=== PATIENT | female | born 1945 | race Caucasian/White ===

== ENCOUNTER 2021-06-29 15:10 | Emergency (ER) | payer MEDICARE, OTHER ==
[2021-06-29 15:26] VITALS: BP 117/81; PULSE 58; RESP 18; TEMP 98
--- NOTE | 2021-06-29 17:05 | CT ---
EXAMINATION TYPE: CT brain shey iglesias DATE OF EXAM: 06/29/2021 COMPARISON: None HISTORY: Fall on eliquis. Right supraorbital bruising. CT DLP: 1076.1 mGycm Automated exposure control for dose reduction was used. There is cerebral cortical atrophy. There is evidence of old right anterior internal capsule lacunar infarct. There is some enlargement of the right lateral ventricle. There is no mass effect nor midlin e shift. There is no sign of intracranial hemorrhage. The calvarium is intact. There is some straightening of the mid cervical spine. There is disc space narrowing from C3 to C7 wi th spurring of the endplates. There is multilevel mild facet arthropathy. There is calcification of t he posterior longitudinal ligament at C3-C4 C5-C6. There is mild narrowing of the spinal canal. There is a bony spinal stenosis at C4-5. Canal measures approximately approximately 7 mm. Prevertebral sof t tissues are intact. IMPRESSION: Cerebral atrophy and chronic small vessel ischemia. 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 No acute intr acranial abnormality. Spondylotic changes in the cervical spine. No fracture.
--- NOTE | 2021-06-29 17:20 | CT ---
EXAMINATION TYPE: CT facial bones wo con DATE OF EXAM: 06/29/2021 COMPARISON: None HISTORY: Fall on eliquis. Right supraorbital bruising. CT DLP: mGycm Automated exposure control for dose reduction was used. Images obtained from the bottom of the mandible to the top of the frontal sinuses without contrast. The mandibular ring is intact. Temporomandibular joints are intact. Zygomatic arches appear normal. T here is normal aeration of the mastoid sinuses. Skull base is intact. There is no evidence of retro-o rbital mass. The orbital margins are intact. There is no evidence of orbital blowout fracture. There is fairly normal aeration of the paranasal sinuses. I see no bony destructive process. There is mild right frontal scalp soft tissue swelling. The maxilla is intact. The nasal bones appear intact. IMPRESSION: Right frontal scalp soft tissue swelling. No fracture seen.
--- NOTE | 2021-06-29 17:27 | ED ---
Fall HPI - General Chief Complaint: Fall Stated Complaint: Fall Source: EMS Mode of arrival: EMS - History of Present Illness Initial Comments: Patient is a 75-year-old female with past medical history of CVA, Parkinson's who presents emergency department with reported head injury. The patient apparently fell at her facility, [facility], 48 hours ago. Patient fell and hit her head. She is on Eliquis for history of strokes. The physician at the facility evaluated the patient today and recommended that due to her anticoagulation that she had a CT of her head performed. The patient has no complaints at this time. She is A+O 2 which is reported by EMS that this is her baseline. Patient answers all questions appropriately for me. She denies any pain. No other alleviating, precipitating or modifying factors - Related Data Home Medications Medication Instructions Recorded Confirmed Apixaban [Eliquis] 5 mg PO BID 06/29/21 06/29/21 Enalapril [Vasotec] 20 mg PO BID 06/29/21 06/29/21 Metoprolol Tartrate 25 mg PO BID 06/29/21 06/29/21 amLODIPine [Norvasc] 10 mg PO DAILY 06/29/21 06/29/21 Allergies Allergy/AdvReac Type Severity Reaction Status Date / Time No Known Allergies Allergy Verified 06/29/21 16:41 Review of Systems ROS Statement: Those systems with pertinent positive or pertinent negative responses have been documented in the HPI. ROS Other: All systems not noted in ROS Statement are negative. Past Medical History Past Medical History: CVA/TIA, Renal Disease Additional Past Medical History / Comment(s): Parkinsons, weakness History of Any Multi-Drug Resistant Organisms: None Reported Past Surgical History: Unable to Obtain Past Psychological History: No Psychological Hx Reported Smoking Status: Never smoker Past Alcohol Use History: None Reported Past Drug Use History: None Reported General Exam Limitations: no limitations Course Vital Signs 06/29/21 15:12 Temperature 98 F Pulse Rate 58 L Respiratory 18 Rate Blood Pressure 117/81 O2 Sat by Pulse 94 L Oximetry Medical Decision Making - Medical Decision Making Upon arrival patient is placed into room 4. A thorough history and physical exam was performed. Patient does have some bruising to the right side of her face. Patient sent over for a CT of her brain, cervical spine and face. CT demonstrates 3 branch been chronic small vessel ischemia. 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 No acute intercranial abnormality. No fractures of the cervical spine. No facial fractures. Right frontal scalp soft tissue. These results were discussed the patient. She will be sent back to [facility] at this time. She was taken back via EMS in stable condition - EKG Data EKG Comments: EKG demonstrates a sinus bradycardia with a ventricular rate of 53. IA interval 172. QRS 88. QTC of 471. No acute ST segment elevations or depressions con cerning for ischemic changes. Disposition Clinical Impression: Fall, Head injury, Anticoagulant long-term use Disposition: HOME SELF-CARE Condition: Stable Instructions (If sedation given, give patient instructions): Fall Prevention for Older Adults (ED) Is patient prescribed a controlled substance at d/c from ED?: No Referrals: Zoltan Padilla DO [Primary Care Provider] - 1-2 days Time of Disposition: 17:28
== END 2021-06-29 18:47 | disposition home or self-care (01) ==
LOC: EC 15:10
DX: S09.90XA Unspecified injury of head, initial encounter (principal); S00.83XA Contusion of other part of head, initial encounter; G20 Parkinson's disease; Z86.73 Personal history of transient ischemic attack (TIA), and cerebral infarction without residual deficits; Z79.01 Long term (current) use of anticoagulants; W01.10XA Fall on same level from slipping, tripping and stumbling with subsequent striking against unspecified object, initial encounter; Y92.239 Unspecified place in hospital as the place of occurrence of the external cause
CPT/HCPCS: 70450; 70486; 72125; 93005; 99284

== ENCOUNTER 2021-07-03 00:34 | Emergency (ER) | payer MEDICARE, OTHER ==
[2021-07-03 00:42] VITALS: RESP 20; TEMP 98
[2021-07-03] MEDS ORDERED: ACETAMINOPHEN TAB 325 MG TAB PO STA (01:13)
--- NOTE | 2021-07-03 01:39 | CT ---
EXAMINATION TYPE: CT brain shey wo con DATE OF EXAM: 07/03/2021 COMPARISON: 06/29/2021 HISTORY: fall Headache. Neck pain. CT DLP: 1439.3 mGycm Automated exposure control for dose reduction was used. There is cerebral cortical atrophy. There is no mass effect nor midline shift. There is no sign of in tracranial hemorrhage. There is some hypodensity anterior right internal capsule consistent with old lacunar infarcts. There is some asymmetric enlargement of the frontal horn right lateral ventricle. C alvarium is intact. The skull base is intact. There is normal aeration of the mastoid sinuses. The cervical vertebra show mild straightening. At C4-5 and C5-6 there is posterior longitudinal ligam ent calcification. There is no compression fracture. There is multilevel cervical disc space narrowin g. IMPRESSION: Cerebral atrophy. Old lacunar infarcts in the right internal capsule. No change compared to old exam. Spondylotic changes in the cervical spine. No fracture. No change compared to old exam.
[2021-07-03 01:40] LABS: Amorphous Sediment,Urine Rare /hpf; Appearance,Urine Cloudy (Clear); Bacteria,Urine Occasional /hpf; Bilirubin,Urine Negative (Negative); Blood,Urine Negative (Negative); Color,Urine Light Yellow; Glucose,Urine (UA) Negative (Negative); Ketones,Urine Negative (Negative); Leukocyte Esterase,Urine Negative (Negative); Nitrite,Urine Negative (Negative); PH, Urine 6.5 (5.0-8.0); Protein,Urine Negative (Negative); RBC,Urine 1 /hpf (0-5); Specific Gravity,Urine 1.006 (1.001-1.035); Squamous Epithelial Cell,Urine 2 /hpf (0-4); WBC,Urine 3 /hpf (0-5)
[2021-07-03 01:41] LABS: INR 1.1 (<1.2); Partial Thromboplastin Time 24.6 sec (22.0-30.0); Prothrombin Time 11.2 sec (9.0-12.0)
[2021-07-03 01:42] LABS: Albumin 4.1 g/dL (3.5-5.0); Calcium 9.2 mg/dL (8.4-10.2); Potassium 4.2 mmol/L (3.5-5.1); Total Bilirubin 0.9 mg/dL (0.2-1.3); Total Protein 7.2 g/dL (6.3-8.2)
[2021-07-03 01:49] LABS: Basophils % (A) 0 %; Eosinophils # (A) 0.1 k/uL (0-0.7); Eosinophils % (A) 1 %; HCT 36.9 % (34.0-46.0); HGB 12.5 gm/dL (11.4-16.0); Lymphocytes # (A) 1.7 k/uL (1.0-4.8); Lymphocytes % (A) 25 %; MCH 30.8 pg (25.0-35.0); MCHC 33.7 g/dL (31.0-37.0); MCV 91.3 fL (80.0-100.0); Mean Platelet Volume 8.1; Monocytes # (A) 0.3 k/uL (0-1.0); Monocytes % (A) 5 %; Neutrophils # (A) 4.6 k/uL (1.3-7.7); Neutrophils % (A) 68 %; Platelet Count 175 k/uL (150-450); RBC 4.04 m/uL (3.80-5.40); WBC 6.8 k/uL (3.8-10.6)
--- NOTE | 2021-07-03 02:32 | ED ---
General Adult HPI - General Chief complaint: Fall Stated complaint: Fall Time Seen by Provider: 07/03/21 01:03 Source: EMS Mode of arrival: EMS - History of Present Illness Initial comments: 75 year-old female patient presents to the emergency department for evaluation after a fall. Patient states this is her second fall this week. She is unsure how she is falling, states she just ends up on the floor. She is unsure if she hit her head. She states she does currently have a mild headache. Denies any blurred or double vision. She does not feel dizzy. Denies any chest pain or s hortness of breath. Denies any abdominal pain. States she is having pain to her bilateral knees. Denies numbness or tingling to the extremities. Denies dizziness or weakness. Patient denies any recent rash, cough, nausea, vomiting, diarrhea, constipation, back pain, numbness, tingling, dizziness, weakness, hematuria, dysuria, urinary urgency, urinary frequency, headache, visual changes, or any other complaints. - Related Data Home Medications Medication Instructions Recorded Confirmed Apixaban [Eliquis] 5 mg PO BID 06/29/21 06/29/21 Enalapril [Vasotec] 20 mg PO BID 06/29/21 06/29/21 Metoprolol Tartrate 25 mg PO BID 06/29/21 06/29/21 amLODIPine [Norvasc] 10 mg PO DAILY 06/29/21 06/29/21 Allergies Allergy/AdvReac Type Severity Reaction Status Date / Time No Known Allergies Allergy Verified 06/29/21 16:41 Review of Systems ROS Statement: Those systems with pertinent positive or pertinent negative responses have been documented in the HPI. ROS Other: All systems not noted in ROS Statement are negative. Past Medical History Past Medical History: CVA/TIA, Renal Disease Additional Past Medical History / Comment(s): Parkinsons, weakness History of Any Multi-Drug Resistant Organisms: None Reported Past Surgical History: Unable to Obtain Past Psychological History: No Psychological Hx Reported Smoking Status: Never smoker Past Alcohol Use History: None Reported Past Drug Use History: None Reported General Exam General appearance: alert, in no apparent distress, other (Physical well- developed, well-nourished elderly female patient in no acute distress. Vital signs upon presentation are temperature 98.0F, pulse 79, respirations 20, blood pressure 173/89, pulse ox 100% on room air.) Head exam: Present: atraumatic, normocephalic, normal inspection Eye exam: Present: PERRL, EOMI, other (There is ecchymosis noted over the right supraorbital and right lateral orbital region extending up onto the forehead. No hyphema or evidence for globe injury. No lid swelling.). Absent: scleral icterus, conjunctival injection, periorbital swelling, periorbital tenderness ENT exam: Present: normal exam, normal oropharynx, mucous membranes moist, other (2cm laceration noted to the left cheek. 1cm laceration to the left side of the nose. No nasal bone tenderness. No epistaxis. No septal hematoma.) Neck exam: Present: normal inspection, full ROM, other (Nontender, no step-off, no deformity to firm midline palpation of the posterior cervical spine. Full range of motion without pain or limitation.). Absent: tenderness, meningismus, lymphadenopathy Respiratory exam: Present: normal lung sounds bilaterally. Absent: respiratory distress, wheezes, rales, rhonchi, stridor Cardiovascular Exam: Present: normal rhythm, bradycardia, normal heart sounds. Absent: systolic murmur, diastolic murmur, rubs, gallop, clicks GI/Abdominal exam: Present: soft, normal bowel sounds. Absent: distended, tenderness, guarding, rebound, rigid Extremities exam: Present: full ROM, normal capillary refill, other (There is abrasion noted over the left anterior knee. No bony tenderness. Patient e xhibits full active range of motion. Skin is otherwise pink, warm, dry. Pedal and posttibial pulses are 2+.). Absent: tenderness, pedal edema, joint swelling, calf tenderness Neurological exam: Present: alert, oriented X3, CN II-XII intact Psychiatric exam: Present: normal affect, normal mood Skin exam: Present: warm, dry, intact, normal color. Absent: rash Course Vital Signs 07/03/21 07/03/21 00:34 02:06 Temperature 98.0 F Pulse Rate 79 55 L Respiratory 20 20 Rate Blood Pressure 173/89 140/67 O2 Sat by Pulse 100 99 Oximetry EKG Findings - EKG Comments: EKG Findings:: EKG obtained at 00 56 shows sinus rhythm with sinus arrhythmia prolonged QT interval. Ventricular rate is 62, NV interval 160, QRS duration 88, QTC 484, QTC 491. No evidence of ST elevation or depression. Procedures - Laceration Laceration #1 Consent Obtained: verbal consent Indication: laceration Site: face (Left cheek) Size (cm): 2 Description: linear Depth: simple, single layer Type of Sutures: other (exofin skin adhesive) Patient Tolerated Procedure: well, no complications Laceration #2 Consent Obtained: verbal consent Indication: laceration Site: face (left side of nose) Size (cm): 1 Depth: simple, single layer Type of Sutures: other (exofin skin adhesive) Patient Tolerated Procedure: well, no complications Medical Decision Making - Medical Decision Making 75 old female patient presented to the emergency department for evaluation after experiencing a fall. Physical examination did reveal abrasion to the left knee. She also had a small laceration noted to the left cheek and the left side of her nose. She did have a fall earlier in the week and had extensive right periorbital ecchymosis and right forehead ecchymosis. Labs reviewed and were unremarkable. CT brain and C-spine negative. We did repair the laceration using exofin skin adhesive. She'll be discharged back to [facility]. Return parameters were discussed in detail. She verbalizes understanding and agrees with this plan. Case discussed by attending Dr. Anne. - Lab Data Result diagrams: 07/03/21 01:19 07/03/21 01:19 Lab Results 07/03/21 07/03/21 07/03/21 Range/Units 01:19 01:19 01:19 WBC 6.8 (3.8-10.6) k/uL RBC 4.04 (3.80-5.40) m/uL Hgb 12.5 (11.4-16.0) gm/dL Hct 36.9 (34.0-46.0) % MCV 91.3 (80.0-100.0) fL MCH 30.8 (25.0-35.0) pg MCHC 33.7 (31.0-37.0) g/dL RDW 15.0 (11.5-15.5) % Plt Count 175 (150-450) k/uL MPV 8.1 Neutrophils % 68 % Lymphocytes % 25 % Monocytes % 5 % Eosinophils % 1 % Basophils % 0 % Neutrophils # 4.6 (1.3-7.7) k/uL Lymphocytes # 1.7 (1.0-4.8) k/uL Monocytes # 0.3 (0-1.0) k/uL Eosinophils # 0.1 (0-0.7) k/uL Basophils # 0.0 (0-0.2) k/uL PT 11.2 (9.0-12.0) sec INR 1.1 (<1.2) APTT 24.6 (22.0-30.0) sec Sodium (137-145) mmol/L Potassium (3.5-5.1) mmol/L Chloride (98-107) mmol/L Carbon Dioxide (22-30) mmol/L Anion Gap mmol/L BUN (7-17) mg/dL Creatinine (0.52-1.04) mg/dL Est GFR (CKD-EPI)AfAm (>60 ml/min/1.73 sqM) Est GFR (CKD-EPI)NonAf (>60 ml/min/1.73 sqM) Glucose (74-99) mg/dL Calcium (8.4-10.2) mg/dL Total Bilirubin (0.2-1.3) mg/dL AST (14-36) U/L ALT (4-34) U/L Alkaline Phosphatase (38-126) U/L Creatine Kinase (30-135) U/L Troponin I (0.000-0.034) ng/mL Total Protein (6.3-8.2) g/dL Albumin (3.5-5.0) g/dL Urine Color Light Yellow Urine Appearance Cloudy H (Clear) Urine pH 6.5 (5.0-8.0) Ur Specific [place] 1.006 (1.001-1.035) Urine Protein Negative (Negative) Urine Glucose (UA) Negative (Negative) Urine Ketones Negative (Negative) Urine Blood Negative (Negative) Urine Nitrite Negative (Negative) Urine Bilirubin Negative (Negative) Urine Urobilinogen 3.0 (<2.0) mg/dL Ur Leukocyte Esterase Negative (Negative) Urine RBC 1 (0-5) /hpf Urine WBC 3 (0-5) /hpf Ur Squamous Epith Cells 2 (0-4) /hpf Amorphous Sediment Rare H (None) /hpf Urine Bacteria Occasional H (None) /hpf 07/03/21 07/03/21 Range/Units 01:19 01:19 WBC (3.8-10.6) k/uL RBC (3.80-5.40) m/uL Hgb (11.4-16.0) gm/dL Hct (34.0-46.0) % MCV (80.0-100.0) fL MCH (25.0-35.0) pg MCHC (31.0-37.0) g/dL RDW (11.5-15.5) % Plt Count (150-450) k/uL MPV Neutrophils % % Lymphocytes % % Monocytes % % Eosinophils % % Basophils % % Neutrophils # (1.3-7.7) k/uL Lymphocytes # (1.0-4.8) k/uL Monocytes # (0-1.0) k/uL Eosinophils # (0-0.7) k/uL Basophils # (0-0.2) k/uL PT (9.0-12.0) sec INR (<1.2) APTT (22.0-30.0) sec Sodium 134 L (137-145) mmol/L Potassium 4.2 (3.5-5.1) mmol/L Chloride 103 (98-107) mmol/L Carbon Dioxide 21 L (22-30) mmol/L Anion Gap 10 mmol/L BUN 13 (7-17) mg/dL Creatinine 0.86 (0.52-1.04) mg/dL Est GFR (CKD-EPI)AfAm 77 (>60 ml/min/1.73 sqM) Est GFR (CKD-EPI)NonAf 66 (>60 ml/min/1.73 sqM) Glucose 189 H (74-99) mg/dL Calcium 9.2 (8.4-10.2) mg/dL Total Bilirubin 0.9 (0.2-1.3) mg/dL AST 30 (14-36) U/L ALT 11 (4-34) U/L Alkaline Phosphatase 80 (38-126) U/L Creatine Kinase 282 H (30-135) U/L Troponin I <0.012 (0.000-0.034) ng/mL Total Protein 7.2 (6.3-8.2) g/dL Albumin 4.1 (3.5-5.0) g/dL Urine Color Urine Appearance (Clear) Urine pH (5.0-8.0) Ur Specific [place] (1.001-1.035) Urine Protein (Negative) Urine Glucose (UA) (Negative) Urine Ketones (Negative) Urine Blood (Negative) Urine Nitrite (Negative) Urine Bilirubin (Negative) Urine Urobilinogen (<2.0) mg/dL Ur Leukocyte Esterase (Negative) Urine RBC (0-5) /hpf Urine WBC (0-5) /hpf Ur Squamous Epith Cells (0-4) /hpf Amorphous Sediment (None) /hpf Urine Bacteria (None) /hpf - Radiology Data Radiology results: report reviewed, image reviewed CT brain and C-spine without contrast was obtained. Report was reviewed in its entirety. Impression by Dr. Lara shows cerebral atrophy. Old lacunar infarcts in the right and dry. No change compared to old exam. Spondylotic changes in the cervical spine. No fracture. No change compared to old exam. Disposition Clinical Impression: Abrasion of left knee, Facial contusion, Frequent falls Disposition: HOME SELF-CARE Condition: Good Instructions (If sedation given, give patient instructions): [place] (ED), Fall Prevention for Older Adults (ED), Abrasion (ED) Additional Instructions: Follow-up with the primary care physician for recheck in 1-2 days. Return to the emergency department for any new, worsening, or concerning symptoms. Is patient prescribed a controlled substance at d/c from ED?: No Referrals: Zoltan Padilla DO [Primary Care Provider] - 1-2 days Time of Disposition: 02:32
[2021-07-03] MEDS ORDERED: TOPICAL SKIN ADHESIVE 1 EACH AMP TOPICAL ONE (02:34)
[2021-07-03] MEDS ORDERED: DIPH,PERTUS(ACELL)TETVAC-LF 0.5 ML VIAL IM ONE (02:34)
[2021-07-03 04:15] VITALS: BP 138/84; PULSE 68
== END 2021-07-03 04:19 | disposition home or self-care (01) ==
LOC: EC 00:34
DX: S80.212A Abrasion, left knee, initial encounter (principal); S01.412A Laceration without foreign body of left cheek and temporomandibular area, initial encounter; S01.21XA Laceration without foreign body of nose, initial encounter; S05.11XA Contusion of eyeball and orbital tissues, right eye, initial encounter; Z23 Encounter for immunization; G20 Parkinson's disease; Z86.73 Personal history of transient ischemic attack (TIA), and cerebral infarction without residual deficits; Z79.01 Long term (current) use of anticoagulants; W18.30XA Fall on same level, unspecified, initial encounter
CPT/HCPCS: 12013; 36415; 70450; 72125; 80053; 81001; 82550; 84484; 85025; 85610; 85730; 90471; 90715; 99285

== ENCOUNTER 2021-12-07 03:12 | Emergency (ER) | payer MEDICARE, OTHER ==
[2021-12-07 03:23] VITALS: BP 133/67; PULSE 69; RESP 17; TEMP 98.4
--- NOTE | 2021-12-07 04:05 | ED ---
General Adult HPI - General Chief complaint: Psychiatric Symptoms Stated complaint: Mental Health Time Seen by Provider: 12/07/21 03:15 Source: patient, EMS, RN notes reviewed, old records reviewed Mode of arrival: EMS - History of Present Illness Initial comments: 76-year-old female presented from group home. She had been quite combative with staff, attended to leave the facility. This is not uncommon for this patient however was worse than usual tonight. They did give intramuscular Ativan. She will not routinely take her medication. She was transported by paramedics, she was calm during transport and upon arrival to the emergency department. She does admit that she tried to leave the facility but the rest of the history obtained from the patient is nonsensical. There is no fever. No history of vomiting. I did discuss case with staff at group home. - Related Data Home Medications Medication Instructions Recorded Confirmed Apixaban [Eliquis] 5 mg PO BID 06/29/21 06/29/21 Enalapril [Vasotec] 20 mg PO BID 06/29/21 06/29/21 Metoprolol Tartrate 25 mg PO BID 06/29/21 06/29/21 amLODIPine [Norvasc] 10 mg PO DAILY 06/29/21 06/29/21 Allergies Allergy/AdvReac Type Severity Reaction Status Date / Time No Known Allergies Allergy Verified 06/29/21 16:41 Review of Systems ROS Statement: Those systems with pertinent positive or pertinent negative responses have been documented in the HPI. ROS Other: All systems not noted in ROS Statement are negative. Past Medical History Past Medical History: CVA/TIA, Renal Disease Additional Past Medical History / Comment(s): Parkinsons, weakness History of Any Multi-Drug Resistant Organisms: None Reported Past Surgical History: Unable to Obtain Past Psychological History: No Psychological Hx Reported Smoking Status: Never smoker Past Alcohol Use History: None Reported Past Drug Use History: None Reported General Exam General appearance: alert, in no apparent distress Head exam: Present: atraumatic, normocephalic Eye exam: Present: normal appearance, PERRL ENT exam: Present: normal exam Neck exam: Present: normal inspection. Absent: tenderness, meningismus Respiratory exam: Present: normal lung sounds bilaterally. Absent: respiratory distress, wheezes Cardiovascular Exam: Present: regular rate, normal rhythm GI/Abdominal exam: Present: soft. Absent: distended, tenderness Neurological exam: Present: alert. Absent: oriented X3 Psychiatric exam: Present: agitated Skin exam: Present: warm, dry, intact. Absent: cyanosis, diaphoretic Course Vital Signs 12/07/21 03:16 Temperature 98.4 F Pulse Rate 69 Respiratory 17 Rate Blood Pressure 133/67 O2 Sat by Pulse 97 Oximetry Medical Decision Making - Medical Decision Making Patient presenting with increased agitation from group home. Patient has been calm and cooperative, sleeping while in the emergency department. She is observed for several hours without incident. Stable for discharge back to group home. Disposition Clinical Impression: Dementia, Agitation due to dementia Disposition: HOME SELF-CARE Condition: Fair Instructions (If sedation given, give patient instructions): Dementia (ED) Is patient prescribed a controlled substance at d/c from ED?: No Referrals: Zoltan Padilla DO [Primary Care Provider] - 1-2 days Time of Disposition: 04:59
== END 2021-12-07 06:38 | disposition home or self-care (01) ==
LOC: EC 03:12
DX: F03.90 Unspecified dementia, unspecified severity, without behavioral disturbance, psychotic disturbance, mood disturbance, and anxiety (principal); R45.1 Restlessness and agitation; Z79.01 Long term (current) use of anticoagulants; Z79.899 Other long term (current) drug therapy
CPT/HCPCS: 99284

== ENCOUNTER 2022-04-28 16:15 | Emergency (ER) | payer MEDICARE, OTHER ==
[2022-04-28 16:29] VITALS: BP 148/73; PULSE 84; RESP 18; TEMP 98.5
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
[2022-04-28] MEDS ORDERED: ZIPRASIDONE 20 MG VIAL IM STA (22:49)
== END 2022-04-29 03:06 | disposition home or self-care (01) ==
LOC: EEVIPCON 16:15 → EC 16:15
DX: G20 Parkinson's disease (principal); F02.81 Dementia in other diseases classified elsewhere, unspecified severity, with behavioral disturbance
CPT/HCPCS: 96372; 99284